=== PATIENT | female | born 1960 | race Caucasian/White ===

== ENCOUNTER → 2018-03-13 | Outpatient (CLI) | payer OTHER ==
[~2018-03-13] MED LIST: ALEVE; ALPRAZOLAM 0.50.5 M1 PO; ATENOLOL 50MG T50 M1 PO; CO Q-10100 MG PO; CYCLOBENZAPRINE; EFFEXOR; FISH OIL; IBUPROFEN; LISINOPRIL-HCT1 EACH PO; MAGNESIUM400 MG PO; MEDROL4 MG; MOBIC15 MG PO; PERCOCET 5-3251 EACH PO; PRIMROSE OIL; VENLAFAXINE HC150 M1 PO; WOMEN'S DAILY1 EAC2 PO
== END ==
LOC: M.RAD 12:27
DX: M47.816 Spondylosis without myelopathy or radiculopathy, lumbar region (principal); M51.36 Other intervertebral disc degeneration, lumbar region; M12.88 Other specific arthropathies, not elsewhere classified, other specified site; I10 Essential (primary) hypertension; G43.909 Migraine, unspecified, not intractable, without status migrainosus

== ENCOUNTER 2018-03-29 01:34 | Emergency (ER) | payer OTHER ==
[~2018-03-29] VITALS: Ht 170.2 cm; Wt 78.9 kg
[~2018-03-29 01:34] MED LIST changes: -ALEVE; -CYCLOBENZAPRINE; -EFFEXOR; -IBUPROFEN; -MEDROL4 MG; -MOBIC15 MG PO; -PERCOCET 5-3251 EACH PO
[2018-03-29] MEDS ORDERED: EFFEXOR (01:46)
[2018-03-29] MEDS ORDERED: CYCLOBENZAPRINE (01:47)
[2018-03-29] MEDS ORDERED: MEDROL4 MG (01:47)
[2018-03-29] MEDS ORDERED: ALEVE (01:48)
[2018-03-29] MEDS ORDERED: IBUPROFEN (01:48)
[2018-03-29] MEDS ORDERED: MOBIC15 MG PO (03:44)
[2018-03-29] MEDS ORDERED: PERCOCET 5-3251 EACH PO (03:44)
[2018-03-29 04:08] VITALS: BP 158/76
== END 2018-03-29 04:09 | disposition home or self-care (01) ==
LOC: M.ERS 01:34
DX: M54.5 Low back pain (principal); F41.9 Anxiety disorder, unspecified; F32.9 Major depressive disorder, single episode, unspecified; G43.909 Migraine, unspecified, not intractable, without status migrainosus; I10 Essential (primary) hypertension; Z88.1 Allergy status to other antibiotic agents